=== PATIENT | male | born 1960 | race Caucasian/White ===

== ENCOUNTER 2020-06-14 15:40 | Observation (INO) ==
--- OUTSIDE RECORDS SUMMARY | 2020-06-14 15:43 | External Medical Summary | Continuity of Care Document ---
:1960 Author Name Jake Montgomery Address Unavailable Unavailable , Care Team Providers Name Role Phone Lon Montgomery Unavailable [email or web address] Unavailable Unavailable Unavailable Unavailable Problems Acute appendicitis (540.9) (K35.80) Allergies and Adverse Reactions Allergy history not documented Medications Medications not documented Procedures Procedures not documented Immunizations Immunizations not documented Plan of Treatment Planned Observations Planned Goals not documented Results No Known Results Results not documented
--- OUTSIDE RECORDS SUMMARY | 2020-06-14 15:43 | External Medical Summary | Continuity of Care Document ---
:1960 Author Name Jake Montgomery Address Unavailable Unavailable , Care Team Providers Name Role Phone Lon Montgomery Unavailable [email or web address] Unavailable Unavailable Unavailable Unavailable Unavailable Problems Acute appendicitis (540.9) (K35.80) Allergies and Adverse Reactions Allergy history not documented Medications Medications not documented Procedures Procedures not documented Immunizations Immunizations not documented Plan of Treatment Planned Observations Planned Goals not documented Results No Known Results Results not documented
[2020-06-14] MEDS ORDERED: ASPIRIN CHEW 324 MG PO STA (15:53)
[2020-06-14] MEDS ORDERED: NITROGLYCERIN SL 0.4 MG/TAB TAB SL PRN ×2 (15:53→17:06)
--- NOTE | 2020-06-14 16:00 | Electrocardiogram Report ---
Test Reason : Blood Pressure : / mmHG Vent. Rate : 067 BPM Atrial Rate : 067 BPM P-R Int : 160 ms QRS Dur : 100 ms QT Int : 400 ms P-R-T Axes : 077 074 069 degrees QTc Int : 422 ms Normal sinus rhythm Incomplete right bundle branch block Borderline ECG When compared with ECG of 07-NOV-2014 21:15, No significant change was found Confirmed by Damon Hubbard ([id number]) on 06/14/2020 4:00:16 PM Referred By: Confirmed By:Damon Hubbard
--- NOTE | 2020-06-14 16:02 | Emergency Department Note ---
Impression & Plan Chest pain, Breath shortness, Abnormal ECG ED Provider Note NAME: CLAUDIO MALONE JR AGE: 60 SEX: M : 1960 ARRIVES VIA: Walk-In INFORMANT: Patient ED PROVIDER(S): José Miguel Salazar DO CHIEF COMPLAINT: Chest pain HPI: Patient is a 60-year-old male who presents to the ER for Chest pressure. Symptoms started around 1130 this morning. Associated with shortness of breath. He has 2 different types of chest pain. It is a sharp and stabbing pain when he pushed on his chest and he also has a diffuse chest pressure/heaviness. All of his symptoms started after receiving bad news about his mother. He notes it is extremely difficult to breathe. He chronically has left arm pain but notes that he had some worsening pain/different pain in his left arm as well. He denies any nausea, vomiting or diarrhea. No dysuria, urgency or frequency. No other exacerbating or remitting factors. Denies any history of diabetes, hypertension, hyperlipidemia or CAD. He admits to extensive family history of WI and CABG. ROS: See above HPI for pertinent positives & negatives. A total of 10 systems reviewed and were otherwise negative. PAST MEDICAL HISTORY:See Below PAST SURGICAL HISTORY:See Below FAMILY HISTORY:See Below SOCIAL HISTORY:See Below HOME MEDICATIONS:See Below ALLERGIES:See Below VITALS:See Below PHYSICAL EXAMINATION: GENERAL: Sitting up in bed, alert, well appearing, well nourished, no distress, non-toxic EYE EXAM: normal conjunctiva. OROPHARYNX: no exudate, no erythema, lips, buccal mucosa, and tongue normal and mucous membranes are moist NECK: supple, no nuchal rigidity, no adenopathy, non-tender LUNGS: Clear to auscultation. Normal chest wall mechanics HEART: no murmurs, S1 normal and S2 normal ABDOMEN: abdomen soft, non-tender, normo-active bowel sounds, no masses, no rebound or guarding. UPPER EXTREMITIES: upper extremities are grossly normal. LOWER EXTREMITIES: No pitting edema. NEURO EXAM: Normal sensorium, cranial nerves II-XII grossly intact, normal speech, no gross weakness of arms, no gross weakness of legs. MEDICAL DECISION MAKING: Patient is a 60-year-old male who presents the ER for precordial chest pain. He has 2 types of chest pain. One is which is reproducible along the chest feel there is a heaviness which resolved with nitro. He did have some arm pain and shortness of breath with it.IV was established blood work was obtained. Labs show no significant leukocytosis or anemia. BMP with a slightly elevated chloride. Creatinine slightly elevated at 1.5 consistent with previous. LFTs bilirubin and troponin was unremarkable. Lipase was normal. Covid was negative. Chest x-ray was unremarkable. EKG in V4 through V6 shows some new nonspecific ST wave changes in comparison to previous EKG performed in 2013. He was given aspirin. Pain resolved with nitro in regards to the diffuse pressure. Still has reproducible pain. He was updated bedside. Discussed with hospit ali for further evaluation with excessive family history of CAD at 61. Triage Nursing notes reviewed. Limited review of prior medical records performed Vital Signs: reviewed and remarkable for HTN Differential diagnosis: Differential diagnoses includes but is not limited to acute coronary syndrome, myocardial infarction, pericarditis, pulmonary embolus, aortic dissection, pneumonia, pneumothorax, musculoskeletal, shingles, esophageal. ER treatment provided: See below Diagnostics interpreted by me: ECG: Sinus rhythm rate of 67 Normal axis No PVCs Nonspecific ST wave changes V4 through V6 as well as the inferior leads with T wave flattening in aVL New ST wave changes in V4 through V6 from previous in 2015 EKG #2: Sinus rhythm rate of 64 Normal axis No PVCs Nonspecific ST wave changes in the inferior leads unchanged from previous Incomplete right bundle unchanged from previous Nonspecific ST wave changes in the lateral leads Cardiac Monitoring: An order was placed for continuous cardiac monitoring. The monitor shows a rate of 70 with sinus rhythm. Laboratory studies: As stated above and show below. Imaging studies: Portable AP upright 1 view of the chest shows no focal infiltrate or pneumothorax Consultation(s): Discussed with hospitalist for further evaluation Procedures: none Critical Care: None Past Med/Surg History Medical History No pertinent past medical history Surgical History History of appendectomy History of foot surgery History of recent maxillofacial surgery 2/2 to broken jaw Family History (Updated 06/14/20 @ 17:29 by Natalie Mishra PA-C) Mother Pacemaker Father Myocardial infarction Coronary heart disease started in late 50s Hx of CABG Social History (Updated 06/14/20 @ 17:29 by Natalie Mishra PA-C) Smoking Status: Never smoker Hx Alcohol Use: Yes Alcohol type: beer Alcohol Intake Frequency: Monthly or Less Hx Substance Use: No Preferred Language: Portuguese marital status: Current Living Situation: Spouse Feels Safe at Home: Yes Allergies Allergies Allergy/AdvReac Type Severity Reaction Status Date / Time morphine Allergy Unknown Burning Verified 06/14/20 17:18 sensation Home Meds Home Medications Medication Instructions Recorded Confirmed No Known Home Medications 06/14/20 06/14/20 Results & Data (ED) Vital Signs Vital Signs - 24 hr 06/14/20 15:42 06/14/20 15:54 06/14/20 16:04 Temperature 36.5 C Temperature Source Oral Pulse Rate 73 74 Pulse Rate [Apical] Pulse Rate from SpO2 Sensor 74 Respiratory Rate 18 25 H Blood Pressure 169/91 H 120/66 Blood Pressure [Left Arm] Blood Pressure Mean 117 84 Blood Pressure Mean [Left Arm] Pulse Oximetry 95 96 Oxygen Delivery Method Room Air Room Air Room Air Sepsis Recent Fever Within 48 Hours No Sepsis New/Unexplained Change in Mental Status N/A Sepsis Action Taken by Nursing No Action Required 06/14/20 16:23 06/14/20 16:30 06/14/20 17:00 Temperature Temperature Source Pulse Rate 73 64 59 L Pulse Rate [Apical] Pulse Rate from SpO2 Sensor 73 64 60 Respiratory Rate 15 16 20 Blood Pressure 99/58 L 128/79 121/71 Blood Pressure [Left Arm] Blood Pressure Mean 71 95 87 Blood Pressure Mean [Left Arm] Pulse Oximetry 94 93 95 Oxygen Delivery Method Room Air Room Air Room Air Sepsis Recent Fever Within 48 Hours Sepsis New/Unexplained Change in Mental Status Sepsis Action Taken by Nursing 06/14/20 17:41 06/14/20 18:01 Temperature Temperature Source Pulse Rate 66 Pulse Rate [Apical] 63 Pulse Rate from SpO2 Sensor 64 Respiratory Rate 18 18 Blood Pressure 119/81 Blood Pressure [Left Arm] 149/92 H Blood Pressure Mean 93 Blood Pressure Mean [Left Arm] 111 Pulse Oximetry 97 98 Oxygen Delivery Method Room Air Sepsis Recent Fever Within 48 Hours Sepsis New/Unexplained Change in Mental Status Sepsis Action Taken by Nursing Laboratory Data Result diagrams: 06/14/20 15:56 06/14/20 15:56 Lab Results 0206/14/20 06/14/20 Range/Units 15:56 15:56 15:56 WBC 5.17 (4.8-10.8) K/uL RBC 4.77 (4.7-6.1) M/uL Hgb 14.8 (14.0-18.0) g/dL Hct 42.3 (42-52) % MCV 88.7 (80-100) fL MCH 31.0 (25-34) pg MCHC 35.0 (32-36) g/dL RDW Std Deviation 41.8 (36.4-46.3) fL RDW Coeff of Debbi 12.9 (11.5-14.5) % Plt Count 210 (130-400) K/uL MPV 10.1 (7.4-10.4) fL Immature Gran % (Auto) 0.2 % Neut % (Auto) 57.6 % Lymph % (Auto) 25.5 % Mccracken % (Auto) 12.8 % Eos % (Auto) 3.3 % Baso % (Auto) 0.6 % Neut # (Auto) 2.98 (1.4-6.5) K/uL Lymph # (Auto) 1.32 (1.2-3.4) K/uL Mccracken # (Auto) 0.66 H (0.11-0.59) K/uL Eos # (Auto) 0.17 (0-0.5) K/uL Baso # (Auto) 0.03 (0-0.2) K/uL Immature Gran # (Auto) 0.01 (0.00-0.02) K/uL D-Dimer 200 (0-500) ug/L FEU Sodium 140 (136-145) mmol/L Potassium 4.0 (3.5-5.1) mmol/L Chloride 109 H (98-107) mmol/L Carbon Dioxide 24 (21-32) mmol/L Anion Gap 7.0 (3-11) BUN 23 H (7-18) mg/dl Creatinine 1.51 H (0.6-1.4) mg/dl Est Cr Clr Drug Dosing 67.1 ml/min Est GFR ( Amer) 57.0 Est GFR (Non-Af Amer) 49.1 BUN/Creatinine Ratio 15.4 (10-20) Glucose 96 (70-99) mg/dl Calcium 9.1 (8.5-10.1) mg/dl Total Bilirubin 0.4 (0.2-1) mg/dl AST 26 (15-37) U/L ALT 52 (12-78) U/L Alkaline Phosphatase 42 L (45-117) U/L Troponin I < 0.015 (0-0.045) ng/ml Total Protein 7.5 (6.4-8.2) gm/dl Albumin 4.1 (3.4-5.0) gm/dl Globulin 3.4 (2.5-4.0) gm/dl Albumin/Globulin Ratio 1.2 (0.9-2) Lipase 244 (73-393) U/L COVID-19 Eval Order SARS-CoV-2, RNA, NAAT (NEGATIVE) 06/14/20 06/14/20 Range/Units 16:12 16:12 WBC (4.8-10.8) K/uL RBC (4.7-6.1) M/uL Hgb (14.0-18.0) g/dL Hct (42-52) % MCV (80-100) fL MCH (25-34) pg MCHC (32-36) g/dL RDW Std Deviation (36.4-46.3) fL RDW Coeff of Debbi (11.5-14.5) % Plt Count (130-400) K/uL MPV (7.4-10.4) fL Immature Gran % (Auto) % Neut % (Auto) % Lymph % (Auto) % Mccracken % (Auto) % Eos % (Auto) % Baso % (Auto) % Neut # (Auto) (1.4-6.5) K/uL Lymph # (Auto) (1.2-3.4) K/uL Mccracken # (Auto) (0.11-0.59) K/uL Eos # (Auto) (0-0.5) K/uL Baso # (Auto) (0-0.2) K/uL Immature Gran # (Auto) (0.00-0.02) K/uL D-Dimer (0-500) ug/L FEU Sodium (136-145) mmol/L Potassium (3.5-5.1) mmol/L Chloride (98-107) mmol/L Carbon Dioxide (21-32) mmol/L Anion Gap (3-11) BUN (7-18) mg/dl Creatinine (0.6-1.4) mg/dl Est Cr Clr Drug Dosing ml/min Est GFR ( Amer) Est GFR (Non-Af Amer) BUN/Creatinine Ratio (10-20) Glucose (70-99) mg/dl Calcium (8.5-10.1) mg/dl Total Bilirubin (0.2-1) mg/dl AST (15-37) U/L ALT (12-78) U/L Alkaline Phosphatase (45-117) U/L Troponin I (0-0.045) ng/ml Total Protein (6.4-8.2) gm/dl Albumin (3.4-5.0) gm/dl Globulin (2.5-4.0) gm/dl Albumin/Globulin Ratio (0.9-2) Lipase (73-393) U/L COVID-19 [facility], RNA, NAAT NEGATIVE (NEGATIVE) Administered Medications Nitroglycerin (Nitroglycerin Sl 0.4 Mg/Tab Tab) 0.4 mg SL PRN PRN PRN Reason: Chest Pain Stop: 07/14/20 15:52 Last Admin: 06/14/20 16:04 Dose: 0.4 mg Documented by: [id number] Discontinued Medications Aspirin (Aspirin Chew 324 Mg) 324 mg PO NOW STA Stop: 06/14/20 15:54 Last Admin: 06/14/20 16:04 Dose: 324 mg Documented by: [id number] Discharge Plan Visit Data Chief Complaint: Shortness of Breath/Dyspnea Stated Complaint: SOB, CHEST PAIN, LEFT ARM PAIN FOR FEW WEEKS ED Provider: José Miguel Salazar Discharge Problem: Chest pain, Breath shortness, Abnormal ECG Forms Stand Alone Forms: [employer] Prescriptions Prescriptions: No Action No Known Home Medications RF: 0 Discharge Problem: Chest pain Qualifiers: Chest pain type: unspecified Qualified Code(s): R07.9 - Chest pain, unspecified
[2020-06-14 16:10] LABS: Basophils # (auto) 0.03 K/uL (0-0.2); Basophils % (auto) 0.6 %; Eosinophils # (auto) 0.17 K/uL (0-0.5); Eosinophils % (auto) 3.3 %; Hematocrit (blood only) 42.3 % (42-52); Hemoglobin 14.8 g/dL (14.0-18.0); Immature Granulocytes # (auto) 0.01 K/uL (0.00-0.02); Immature Granulocytes % (auto) 0.2 %; Lymphocytes # (auto) 1.32 K/uL (1.2-3.4); Lymphocytes % (auto) 25.5 %; Mean Corpuscular Volume 88.7 fL (80-100); Mean Platelet Volume 10.1 fL (7.4-10.4); Monocytes # (auto) 0.66 K/uL (0.11-0.59); Monocytes % (auto) 12.8 %; Neutrophils # (auto) 2.98 K/uL (1.4-6.5); Neutrophils % (auto) 57.6 %; Platelet Count 210 K/uL (130-400); RDW Coefficient of Variation 12.9 % (11.5-14.5); RDW Standard Deviation 41.8 fL (36.4-46.3); Red Blood Count 4.77 M/uL (4.7-6.1); White Blood Count 5.17 K/uL (4.8-10.8)
--- NOTE | 2020-06-14 16:17 | XRay Report ---
XR chest 1V portable CLINICAL HISTORY: Atypical chest pain COMPARISON STUDY: 06/14/2014 FINDINGS: The cardiac and mediastinal contours are normal. There is no evidence of focal pulmonary co nsolidation. There is no evidence of failure. No pleural effusions are visualized.[There is mild left basilar subsegmental atelectasis/scarring. The chest has an emphysematous configuration. IMPRESSION: No active disease in the chest. ACT 112: Negative or not required by law. Electronically signed by: Thiago Abernathy M.D. 06/14/2020 4:16 PM
[2020-06-14 16:18] LABS: D Dimer 200 ug/L FEU (0-500)
[2020-06-14 16:39] LABS: Alanine Aminotransferase 52 U/L (12-78); Albumin Level 4.1 gm/dl (3.4-5.0); Aspartate Aminotransferase 26 U/L (15-37); BUN Creatinine Ratio 15.4 (10-20); Blood Urea Nitrogen 23 mg/dl (7-18); Calcium 9.1 mg/dl (8.5-10.1); Carbon Dioxide 24 mmol/L (21-32); Chloride 109 mmol/L (98-107); Creatinine Clr Calc Pharmacy 67.1 ml/min; Est GFR (Non-African American) 49.1; Glucose 96 mg/dl (70-99); Lipase 244 U/L (73-393); Sodium 140 mmol/L (136-145)
[2020-06-14 16:43] LABS: Albumin Globulin Ratio 1.2 (0.9-2); Alkaline Phosphatase 42 U/L (45-117); Bilirubin,Total 0.4 mg/dl (0.2-1); Globulin 3.4 gm/dl (2.5-4.0); Total Protein 7.5 gm/dl (6.4-8.2); Troponin I < 0.015 ng/ml (0-0.045)
[2020-06-14] MEDS ORDERED: ALUMINUM/MAGNESIUM SUSP 30 ML UDC PO PRN (17:06)
[2020-06-14] MEDS ORDERED: POLYETHYLENE (MIRALAX) 17 GM PACK PO PRN (17:06)
[2020-06-14] MEDS ORDERED: ONDANSETRON INJ 2 MG/ML 2 ML VIAL IV PRN (17:06)
[2020-06-14] MEDS ORDERED: MAGNESIUM HYDROXIDE SUSP 30 ML UDC PO PRN (17:06)
[2020-06-14] MEDS ORDERED: ACETAMINOPHEN 325 MG TAB PO PRN (17:06)
--- NOTE | 2020-06-14 17:31 | History & Physical Report ---
Date of Service June 14, 2020 Assessment & Plan (1) Chest pain: (2) Breath shortness: (3) Elevated serum creatinine: Pt with no known PMH and hasn't seen PCP in 2-3 years, last seen by Dr. Montague. Does not take any prescription or OTC meds. Current cardiac work up unremarkable, although significant FH in father. Admit for further cardiac work up/testing. admit to med tele cycle trop, repeat ecg obtain echocardiogram prior stress echo 10/2012 unremarkable elevated cr 1.51 ? possible underlying CKD, last cr in 2018 was elevated at 1.3 Monitor BP, fasting lipid panel/a1c in a.m. pt does appear significant depressed and flat affected and minimal eye contact - does appear to have family illness playing role nonetheless given FH will rule cardiac etiology prn nitro chest pain or APAP for generalized pain History of Present Illness Chief Complaint: Chest pain x 6 hours. Primary Care Provider: Juan Diego Montague MD This is a 60-year-old male with no significant PMH who presents ED secondary to chest pain x6 hours. Pain started approximately 11 AM while he was standing in his kitchen. Pain was substernal and nonradiating. Pain rated 3/10 and described as a heaviness or as if someone is, "pushing a fist in his chest." He denies similar sx in past. Sx associated with SOB. He has never experience in past. Pain has been constant but waxes and wanes in severity. Made worse with lying down, bending over or taking deep breath in. When pain first came on he felt like he couldn't take a deep breath, but this has since improved. Denies associated diaphoresis, nausea, emesis, dizziness, lightheaded or syncope. No recent illness, f/c/or sweats. Appetite has been okay. He does elicit prior to the pain he found out, "bad," news about his father, but did not elaborate on this. Significant FH for CAD with father CA in 50s and hx of CABG. Mother has hx of pacer placement 2-3 years ago. He denies tobacco use, prescription or OTC meds or elicit drug use. In ED pt remained hemodynamically stable or mildly hypertensive. CBC, CMP general unremarkable except mildly elevated cr at 1.5. D-dimer was negative and troponin WNL. ECG without ST change. He received ASA and nitro with no real benefit. Allergies Allergy/AdvReac Type Severity Reaction Status Date / Time morphine Allergy Unknown Burning Verified 06/14/20 17:18 sensation Home Medications Medication Instructions Recorded Confirmed Type No Known Home Medications 06/14/20 06/14/20 History Past Med/Surg History Medical History No pertinent past medical history Surgical History History of appendectomy History of foot surgery History of recent maxillofacial surgery / to broken jaw Family History (Updated 06/14/20 @ 17:29 by Natalie Mishra PA-C) Mother Pacemaker Father Myocardial infarction Coronary heart disease started in late 50s Hx of CABG Social History (Updated 06/14/20 @ 17:29 by Natalie Mishra PA-C) Smoking Status: Never smoker Hx Alcohol Use: Yes Alcohol type: beer Alcohol Intake Frequency: Monthly or Less Hx Substance Use: No Preferred Language: Kiswahili Communication Ability: Effective Beliefs That Will Affect Care: None marital status: Current Living Situation: Spouse Feels Safe at Home: Yes Assistive Devices: Glasses Review of Systems Review of Systems: All systems reviewed & are unremarkable except as noted in HPI & below Physical Exam Physical Exam: please refer to Dr. Newman addendum for physical exam findings Results & Data Results & Data ([facility]) Vital Signs (Past 12 Hours) Vital Signs Temp Pulse Resp BP Pulse Ox 06/14/20 17:00 59 L 20 121/71 95 06/14/20 16:30 64 16 128/79 93 06/14/20 16:23 73 15 99/58 L 94 06/14/20 16:04 74 25 H 120/66 96 06/14/20 15:42 36.5 C 73 18 169/91 H 95 Diagnostic Findings CXR: FINDINGS: The cardiac and mediastinal contours are normal. There is no evidence of focal pulmonary consolidation. There is no evidence of failure. No pleural effusions are visualized.[There is mild left basilar subsegmental atelectasis/scarring. The chest has an emphysematous configuration. IMPRESSION: No active disease in the chest. Medications Administered Nitroglycerin (Nitroglycerin Sl 0.4 Mg/Tab Tab) 0.4 mg SL PRN PRN PRN Reason: Chest Pain Stop: 07/14/20 15:52 Last Admin: 06/14/20 16:04 Dose: 0.4 mg Documented by: [id number] Discontinued Medications Aspirin (Aspirin Chew 324 Mg) 324 mg PO NOW STA Stop: 06/14/20 15:54 Last Admin: 06/14/20 16:04 Dose: 324 mg Documented by: [id number] ECG Rate (beats per minute): 67 Rhythm: normal sinus Additional Comments: incomplete RBBB COVID-19 Results Results COVID-19 Adm Lab Results: RBC 4.77 M/uL (4.7-6.1) 06/14/20 WBC 5.17 K/uL (4.8-10.8) 06/14/20 Hgb 14.8 g/dL (14.0-18.0) 06/14/20 Hct 42.3 % (42-52) 06/14/20 Plt Count 210 K/uL (130-400) 06/14/20 Neutrophils (%) (Auto) 57.6 % 06/14/20 Lymphocytes (%) (Auto) 25.5 % 06/14/20 Monocytes # (Auto) 0.66 K/uL (0.11-0.59) H 06/14/20 Eosinophils # (Auto) 0.17 K/uL (0-0.5) 06/14/20 Immature Granulocyte % (Auto) 0.2 % 06/14/20 Neutrophils # (Auto) 2.98 K/uL (1.4-6.5) 06/14/20 Lymphocytes # (Auto) 1.32 K/uL (1.2-3.4) 06/14/20 Monocytes # (Auto) 0.66 K/uL (0.11-0.59) H 06/14/20 Eosinophils # (Auto) 0.17 K/uL (0-0.5) 06/14/20 Basophils # (Auto) 0.03 K/uL (0-0.2) 06/14/20 Immature Granulocyte # (Auto) 0.01 K/uL (0.00-0.02) 06/14/20 Na 140 mmol/L (136-145) 06/14/20 K 4.0 mmol/L (3.5-5.1) 06/14/20 Cl 109 mmol/L (98-107) H 06/14/20 CO2 24 mmol/L (21-32) 06/14/20 Anion Gap 7.0 (3-11) 06/14/20 BUN 23 mg/dl (7-18) H 06/14/20 Creatinine 1.51 mg/dl (0.6-1.4) H 06/14/20 BUN/Creatinine Ratio 15.4 (10-20) 06/14/20 Glucose Level 96 mg/dl (70-99) 06/14/20 Ca 9.1 mg/dl (8.5-10.1) 06/14/20 Total Bilirubin 0.4 mg/dl (0.2-1) 06/14/20 AST/SGOT 26 U/L (15-37) 06/14/20 ALT/SGPT 52 U/L (12-78) 06/14/20 Alkaline Phosphatase 42 U/L (45-117) L 06/14/20 Total Protein 7.5 gm/dl (6.4-8.2) 06/14/20 Albumin 4.1 gm/dl (3.4-5.0) 06/14/20 Globulin 3.4 gm/dl (2.5-4.0) 06/14/20 Albumin/Globulin Ratio 1.2 (0.9-2) 06/14/20 Troponin I < 0.015 ng/ml (0-0.045) 06/14/20 D-Dimer 200 ug/L FEU (0-500) 06/14/20 SARS-CoV-2, RNA, NAAT NEGATIVE (NEGATIVE) 06/14/20 Chest X-Ray 06/14/20 Code Status & VTE Plan Code Status Full Code VTE Prophylaxis Plan VTE Prophylaxis will be ordered: Yes Supervising Physician Co-Signing Physician Notes Pt seen and examined by me, care coordinated with with Natalie Mishra PA-C, pls refer to her note above for further detail. Pt is a 60-year-old male with no significant PMH who presents w/chest pain x6 hours. Started while he was standing in his kitchen and heard some "bad news" about a family member. Pain was substernal and nonradiating. Pt reports pressure and also stabbing pain. Denies similar sx in past. Sx associated with SOB, but no diaphoresis, dizziness, lightheadedness, nausea. Made worse with lying down, bending over or taking deep breath in. He has significant FH for CAD. He denies tobacco use. Currently sitting up in bed appears in NAD, however somewhat anxious w/ poor eye-contact. Breathing comfortably on room air. tropx1 negative, EKG showing RBBB, unchanged from previous. Heart sounds regular. Lung sounds CTAB no wheezing, rhonchi, crackles. Abdomen soft, nontender, nondistended. Pt moves extremities w/o difficulty. Extremities well perfused, warm. Cont. to trend trop., repeat EKG, monitor on tele, will obtain Echo in the morning and further discuss w/ cardiology depending on results. Stephen Newman MD (1) Chest pain Chest pain type: unspecified Qualified Code(s): R07.9 - Chest pain, unspecified
[2020-06-15 03:25] LABS: Hematocrit (blood only) 40.9 % (42-52); Hemoglobin 14.4 g/dL (14.0-18.0); Mean Corpuscular Hemoglobin 31.4 pg (25-34); Mean Corpuscular Hgb Conc 35.2 g/dL (32-36); Mean Corpuscular Volume 89.1 fL (80-100); Mean Platelet Volume 9.8 fL (7.4-10.4); Platelet Count 175 K/uL (130-400); RDW Standard Deviation 41.9 fL (36.4-46.3); Red Blood Count 4.59 M/uL (4.7-6.1); White Blood Count 4.68 K/uL (4.8-10.8)
[2020-06-15 03:43] LABS: BUN Creatinine Ratio 16.5 (10-20); Blood Urea Nitrogen 22 mg/dl (7-18); Calcium 8.5 mg/dl (8.5-10.1); Carbon Dioxide 25 mmol/L (21-32); Chloride 109 mmol/L (98-107); Est GFR (Non-African American) 57.8; Glucose 94 mg/dl (70-99); Magnesium 2.4 mg/dl (1.8-2.4); Sodium 141 mmol/L (136-145)
[2020-06-15 03:48] LABS: Chol HDL Ratio 6; Cholesterol 211 mg/dl (0-200); HDL Cholesterol 38 mg/dl; LDL Cholesterol Calculated 126 mg/dl; Triglycerides 234 mg/dl (0-150); Troponin I < 0.015 ng/ml (0-0.045); VLDL Cholesterol 47 mg/dl
[2020-06-15 06:03] LABS: Estimated Average Glucose 120 mg/dl; Hemoglobin A1C 5.8 % (4.5-5.6)
[2020-06-15] MEDS ORDERED: PERFLUTREN LIPID MICROSPHERE (DEFINITY) IV ONE (06:56)
--- NOTE | 2020-06-15 08:29 | Electrocardiogram Report ---
Test Reason : Blood Pressure : / mmHG Vent. Rate : 064 BPM Atrial Rate : 064 BPM P-R Int : 156 ms QRS Dur : 100 ms QT Int : 412 ms P-R-T Axes : 067 058 051 degrees QTc Int : 425 ms Normal sinus rhythm Incomplete right bundle branch block Borderline ECG When compared with ECG of 14-JUN-2020 15:49, No significant change was found Confirmed by Damon Hubbard ([id number]) on 06/15/2020 8:29:10 AM Referred By: REFERRED SELF Confirmed By:Damon Hubbard
--- NOTE | 2020-06-15 08:30 | Electrocardiogram Report ---
Test Reason : Blood Pressure : / mmHG Vent. Rate : 053 BPM Atrial Rate : 053 BPM P-R Int : 170 ms QRS Dur : 094 ms QT Int : 458 ms P-R-T Axes : 080 082 077 degrees QTc Int : 429 ms Sinus bradycardia Incomplete right bundle branch block Abnormal ECG When compared with ECG of 14-JUN-2020 16:23, No significant change Confirmed by Damon Hubbard ([id number]) on 06/15/2020 8:29:40 AM Referred By: REFERRED SELF Confirmed By:Damon Hubbrad
--- NOTE | 2020-06-15 09:23 | Cardiology Consultation ---
Date of Consultation June 15, 2020 Assessment & Plan (1) Chest pain: (2) Breath shortness: (3) Elevated serum creatinine: Initial ischemic work-up was unremarkable with an unremarkable EKG and negative troponins. Resting echocardiogram was unremarkable showing normal LV systolic function without significant valvular pathology. Exercise stress echocardiogram was negative for ischemia but did show significantly hypertensive blood pressure response to exercise. Upon examination: Left third rib stuck in exhalation with chest pain reproducible, patient given stretching exercises to mobilize the rib. Okay to discharge from a cardiac standpoint. Patient does not routinely follow with a PCP given his hypertensive response and elevated creatinine I have recommended to him that he obtain 1. Consideration should be given to starting losartan 25 mg daily upon discharge with repeat BMP in 1 week and evaluation with PCP at that time. No cardiac follow-up necessary History of Present Illness Reason for Consultation: Chest pain Requesting Physician: Dr. Carolina Attending Physician: Wily Carolina MD History of Present Illness Mr. Herbert is a very pleasant 60-year-old gentleman who presented to [facility] on 06/14/2020 with complaints of chest pain. The patient states that his discomfort started that morning when he was simply sitting. He described it as a significant substernal pressure sensation that seem to radiate across his left precordium. He states it was severe and worsened with deep inhalation. He became short of breath at that time but denied any associated radiation, shortness of breath, diaphoresis, nausea, lightheadedness, dizziness or syncope. He denies any previous similar episodes. After several hours he came to the emergency department. He states that the discomfort was waxing and waning and again worse with deep inhalation and somewhat tender to the touch. Upon arrival his initial work-up was unremarkable and he was admitted to telemetry. Overnight his troponin was negative x3 and resting echocardiogram was unremarkable. Of note, the patient does not follow with a PCP on a regular basis. Allergies Allergy/AdvReac Type Severity Reaction Status Date / Time morphine Allergy Unknown Burning Verified 06/14/20 17:18 sensation Home Medications Medication Instructions Recorded Confirmed Type No Known Home Medications 06/14/20 06/14/20 History Patient History Medical History No pertinent past medical history Surgical History History of appendectomy History of foot surgery History of recent maxillofacial surgery 2/2 to broken jaw Family History Mother Pacemaker Father Myocardial infarction Coronary heart disease started in late 50s Hx of CABG Social History Smoking Status: Never smoker Hx Alcohol Use: Yes Alcohol type: beer Alcohol Intake Frequency: Monthly or Less Hx Substance Use: No Preferred Language: Maori Communication Ability: Effective Beliefs That Will Affect Care: None marital status: Current Living Situation: Spouse Feels Safe at Home: Yes Assistive Devices: None Review of Systems Review of Systems: All systems reviewed & are unremarkable except as noted in HPI & below Physical Exam Physical Exam: General: Awake, alert and oriented x 3. No acute distress. HEENT: Normocephalic, atraumatic. Pupils equal, round and reactive to light and accommodation. Extraocular muscles are intact. Anicteric sclera. Moist mucous membranes. Neck: No JVD. No bruit. Cardiovascular: Regular. Positive S-4. Normal S-1 and S-2. No S-3. No murmurs or rubs. Pulmonary: Clear to auscultation B/L. No rales, rhonchi or wheezing Abdomen: Bowel sounds x 4, soft. No rebound, guarding or tenderness. No organomegaly. Extremities: No clubbing, cyanosis or edema. +2 pedal pulses bilaterally. Skin: Warm and dry. Results & Data ([facility]) Vital Signs (Past 12 Hours) Vital Signs Temp Pulse Pulse Resp BP Pulse Ox 06/15/20 08:49 53 L 06/15/20 08:12 36.5 C 67 18 120/71 94 06/15/20 03:00 36.4 C L 59 L 20 128/77 96 06/15/20 00:36 56 L 06/14/20 23:00 36.5 C 52 L 20 126/77 95 Laboratory Results Laboratory Results - last 24 hr 06/14/20 06/14/20 06/14/20 15:56 15:56 15:56 WBC 5.17 RBC 4.77 Hgb 14.8 Hct 42.3 MCV 88.7 MCH 31.0 MCHC 35.0 RDW Std Deviation 41.8 RDW Coeff of Debbi 12.9 Plt Count 210 MPV 10.1 Immature Gran % (Auto) 0.2 Neut % (Auto) 57.6 Lymph % (Auto) 25.5 [place] % (Auto) 12.8 Eos % (Auto) 3.3 Baso % (Auto) 0.6 Neut # (Auto) 2.98 Lymph # (Auto) 1.32 [place] # (Auto) 0.66 H Eos # (Auto) 0.17 Baso # (Auto) 0.03 Immature Gran # (Auto) 0.01 D-Dimer 200 Sodium 140 Potassium 4.0 Chloride 109 H Carbon Dioxide 24 Anion Gap 7.0 BUN 23 H Creatinine 1.51 H Est Cr Clr Drug Dosing 67.1 Est GFR ( Amer) 57.0 Est GFR (Non-Af Amer) 49.1 BUN/Creatinine Ratio 15.4 Glucose 96 Estimat Average Glucose Hemoglobin A1c Calcium 9.1 Magnesium Total Bilirubin 0.4 AST 26 ALT 52 Alkaline Phosphatase 42 L Troponin I < 0.015 Total Protein 7.5 Albumin 4.1 Globulin 3.4 Albumin/Globulin Ratio 1.2 Triglycerides Cholesterol LDL Cholesterol, Calc VLDL Cholesterol, Calc HDL Cholesterol Cholesterol/HDL Ratio Lipase 244 COVID-19 Eval Order SARS-CoV-2, RNA, NAAT 06/14/20 06/14/20 06/14/20 16:12 16:12 21:21 WBC RBC Hgb Hct MCV MCH MCHC RDW Std Deviation RDW Coeff of Debbi Plt Count MPV Immature Gran % (Auto) Neut % (Auto) Lymph % (Auto) [place] % (Auto) Eos % (Auto) Baso % (Auto) Neut # (Auto) Lymph # (Auto) [place] # (Auto) Eos # (Auto) Baso # (Auto) Immature Gran # (Auto) D-Dimer Sodium Potassium Chloride Carbon Dioxide Anion Gap BUN Creatinine Est Cr Clr Drug Dosing Est GFR ( Amer) Est GFR (Non-Af Amer) BUN/Creatinine Ratio Glucose Estimat Average Glucose Hemoglobin A1c Calcium Magnesium Total Bilirubin AST ALT Alkaline Phosphatase Troponin I < 0.015 Total Protein Albumin Globulin Albumin/Globulin Ratio Triglycerides Cholesterol LDL Cholesterol, Calc VLDL Cholesterol, Calc HDL Cholesterol Cholesterol/HDL Ratio Lipase COVID-19 Eval [facility] SARS-CoV-2, RNA, NAAT NEGATIVE 06/15/20 06/15/20 06/15/20 03:13 03:13 03:13 WBC 4.68 L RBC 4.59 L Hgb 14.4 Hct 40.9 L MCV 89.1 MCH 31.4 MCHC 35.2 RDW Std Deviation 41.9 RDW Coeff of Debbi 13.0 Plt Count 175 MPV 9.8 Immature Gran % (Auto) Neut % (Auto) Lymph % (Auto) [place] % (Auto) Eos % (Auto) Baso % (Auto) Neut # (Auto) Lymph # (Auto) [place] # (Auto) Eos # (Auto) Baso # (Auto) Immature Gran # (Auto) D-Dimer Sodium 141 Potassium 4.0 Chloride 109 H Carbon Dioxide 25 Anion Gap 7.0 BUN 22 H Creatinine 1.32 Est Cr Clr Drug Dosing 77.0 Est GFR ( Amer) 67.0 Est GFR (Non-Af Amer) 57.8 BUN/Creatinine Ratio 16.5 Glucose 94 Estimat Average Glucose 120 Hemoglobin A1c 5.8 H Calcium 8.5 Magnesium 2.4 Total Bilirubin AST ALT Alkaline Phosphatase Troponin I < 0.015 Total Protein Albumin Globulin Albumin/Globulin Ratio Triglycerides 234 H Cholesterol 211 H LDL Cholesterol, Calc 126 VLDL Cholesterol, Calc 47 HDL Cholesterol 38 Cholesterol/HDL Ratio 6 Lipase COVID-19 Eval Order SARS-CoV-2, RNA, NAAT Medications Administered Current Inpatient Medications Acetaminophen (Acetaminophen 325 Mg Tab) 650 mg PO Q4H PRN PRN Reason: Pain or Fever Stop: 07/14/20 17:05 Al Hydrox/Mg Hydrox/Simethicone (Aluminum/Magnesium Susp 30 Ml Udc) 15 ml PO Q4H PRN PRN Reason: Dyspepsia Stop: 07/14/20 17:05 Magnesium Hydroxide (Magnesium Hydroxide Susp 30 Ml Udc) 30 ml PO Q12H PRN PRN Reason: Constipation Stop: 07/14/20 17:05 Nitroglycerin (Nitroglycerin Sl 0.4 Mg/Tab Tab) 0.4 mg SL PRN PRN PRN Reason: Chest Pain Stop: 07/14/20 15:52 Last Admin: 06/14/20 16:04 Dose: 0.4 mg Documented by: Nitroglycerin (Nitroglycerin Sl 0.4 Mg/Tab Tab) 0.4 mg SL UD PRN PRN Reason: Chest Pain Stop: 07/14/20 17:05 Ondansetron HCl (Ondansetron Inj 2 Mg/Ml 2 Ml Vial) 4 mg IV Q6H PRN PRN Reason: Nausea Stop: 07/14/20 17:05 Polyethylene Glycol (Polyethylene (Miralax) 17 Gm Pack) 17 gm PO DAILY PRN PRN Reason: Constipation Stop: 07/14/20 17:05 (1) Chest pain Chest pain type: unspecified Qualified Code(s): R07.9 - Chest pain, unspecified
--- NOTE | 2020-06-15 15:15 | Discharge Summary ---
Date of Service June 15, 2020 Admission HPI Per Admitting Provider This is a 60-year-old male with no significant PMH who presents ED secondary to chest pain x6 hours. Pain started approximately 11 AM while he was standing in his kitchen. Pain was substernal and nonradiating. Pain rated 3/10 and described as a heaviness or as if someone is, "pushing a fist in his chest." He denies similar sx in past. Sx associated with SOB. He has never experience in past. Pain has been constant but waxes and wanes in severity. Made worse with lying down, bending over or taking deep breath in. When pain first came on he felt like he couldn't take a deep breath, but this has since improved. Denies associated diaphoresis, nausea, emesis, dizziness, lightheaded or syncope. No recent illness, f/c/or sweats. Appetite has been okay. He does elicit prior to the pain he found out, "bad," news about his father, but did not elaborate on this. Significant FH for CAD with father [place] in 50s and hx of CABG. Mother has hx of pacer placement 2-3 years ago. He denies tobacco use, prescription or OTC meds or elicit drug use. In ED pt remained hemodynamically stable or mildly hypertensive. CBC, CMP general unremarkable except mildly elevated cr at 1.5. D-dimer was negative and troponin WNL. ECG without ST change. He received ASA and nitro with no real benefit. Discharge Data Allergies Allergy/AdvReac Type Severity Reaction Status Date / Time morphine Allergy Unknown Burning Verified 06/14/20 17:18 sensation Consultations 06/14/20 16:58 ED Decision to Admit Stat 06/14/20 17:06 Consult Cardiology Routine Discharge Plan Discharge Items Patient Disposition: Home - Self-Care Reason For Visit: CHEST PAIN Discharge Diagnosis: CHEST PAIN, LIKELY SECONDARY TO RIB PAIN HYPERTENSION Activity: Resume your previous activity Activity Comment: NO HEAVY LIFTING Non-emergency contact: Primary Care Provider Call non-emergency contact if: you have any medication questions, your symptoms worsen, your pain is not controlled, your pain is worsening, your pain is unusual for you, your pain is concerning for you and you have a fever Follow-up/Referrals: Juan Diego Montague MD [Primary Care Provider] - 06/21/20 11:00 am Diet: Heart Healthy and Low Sodium (2gm) Addtl Attending Provider Instructions: YOUR NEW MEDICATION IS LOSARTAN 25MG DAILY- TO CONTROL HIGH BLOOD PRESSURE. DRINK PLENTY OF FLUIDS. FOLLOW UP WITH PRIMARY CARE PHYSICIAN OUTLINED ABOVE. CALL PRIMARY CARE PHYSICIAN OR RETURN TO THE ER IMMEDIATELY IF WITH WORSENING OF SYMPTOMS. Pending Studies at Discharge: Yes Studies:: REPEAT BLOODWORK- BASIC METABOLIC PROFILE- ON FF UP WITH PRIMARY CARE PHYSICIAN NEXT WEEK. Stand-Alone Forms: [employer], Smoking Cessation Medications and DC Order Prescriptions: New losartan 25 mg tablet 25 mg PO DAILY Qty: 30 RF: 0 No Action No Known Home Medications RF: 0 Discharge Orders: Discharge Order (Routine); Ordered 06/15/20 Ordered By: Wily Carolina Admission Data Admit Date/Time: 06/14/20 17:07 Attending Provider: Wily Carolina Admit Provider: Toni Newman Primary Care Provider: Juan Diego Montague Other Providers: Toni Newman ; Ralf Jose Other Interventions: Discharge Summary Assessment (RN) Last Done: 06/15/20 13:55
== END 2020-06-15 16:20 | disposition home or self-care (01) ==
LOC: ED 15:40 → 2W 15:40 → SUATTDRO 17:07 → 2W 18:52
DX: Z88.5 Allergy status to narcotic agent; R07.9 Chest pain, unspecified